=== PATIENT | male | born 1995 ===

== ENCOUNTER 2022-02-11 22:18 | Emergency (ER) | payer BC ==
[2022-02-11] MEDS ORDERED: Tetracaine HCl/PF 0.5% 4 ML Bottle ONE (22:34)
[2022-02-11] MEDS ORDERED: Balanced Salt Solution Ophth Irrig 30 ML Bottle ONE (22:40)
== END 2022-02-11 23:15 | disposition home or self-care (01) ==
LOC: LL.ED 22:18
DX: T15.91XA Foreign body on external eye, part unspecified, right eye, initial encounter (principal)
CPT/HCPCS: 65220; 99283